=== PATIENT | male | born 1990 | race African-American/Black ===

== ENCOUNTER 2017-06-08 15:51 | Inpatient (IN) | payer OTHER ==
[~2017-06-08] VITALS: Ht 167.6 cm; Wt 71.2 kg
[~2017-06-08 15:51] MED LIST: ATIVAN1 MG PO; CORGARD20 M1; MIDODRINE HCL10 MG; RESTORA CAPSUL1 EACH
[2017-06-08] MEDS ORDERED: PAXIL10 MG PO (15:53)
[2017-06-08 16:40] LABS: ABSOLUTE NEUTROPHILS 6.7 thou/uL (1.4-8.2); BASOPHILS 0.8 % (0.0-2.0); EOSINOPHILS 0.2 % (0.0-3.0); HEMATOCRIT 45.8 % (42.0-52.0); HEMOGLOBIN 15.8 gm/dL (14.0-18.0); LYMPHOCYTES 12.3 % (24.0-44.0); MCH 29.2 pg (26.0-34.0); MCHC 34.5 g/dL (28.0-37.0); MCV 84.5 fL (80.0-100.0); MONOCYTES 11.6 % (1.0-8.0); PLATELET COUNT 235 thou/uL (150-400); POLYS 75.1 % (36.0-66.0); RBC 5.42 mil/uL (4.50-6.00); RDW 13.2 % (10.5-14.5); WBC 8.9 thou/uL (4.0-11.0)
[2017-06-08 16:41] LABS: MANUAL DIFF NO
[2017-06-08 16:57] LABS: ALBUMIN 4.4 g/dL (3.4-5.0); CALCIUM 9.8 mg/dL (8.5-10.1); CREATININE 1.3 mg/dL (0.7-1.3); TOTAL PROTEIN 8.1 g/dL (6.4-8.2)
[2017-06-08 16:59] LABS: POTASSIUM 2.7 mmol/L (3.5-5.1)
[2017-06-08 18:52] VITALS: BP 164/92
[2017-06-08 19:20] VITALS: BP 150/101
[2017-06-08 21:25] LABS: MAGNESIUM 1.5 mg/dL (1.8-2.4); PHOSPHORUS 3.7 mg/dL (2.5-4.9)
[2017-06-08 22:26] LABS: FOLIC ACID 29.4 ng/mL (8.6-58.9)
[2017-06-09 00:32] VITALS: BP 144/105
[2017-06-09 04:19] VITALS: BP 132/93
[2017-06-09 05:46] LABS: HEMATOCRIT 39.8 % (42.0-52.0); MCH 28.9 pg (26.0-34.0); MCHC 33.6 g/dL (28.0-37.0); RBC 4.63 mil/uL (4.50-6.00); RDW 13.2 % (10.5-14.5); WBC 6.2 thou/uL (4.0-11.0)
[2017-06-09 05:49] LABS: HEMOGLOBIN 13.4 gm/dL (14.0-18.0)
[2017-06-09 06:12] LABS: CALCIUM 8.3 mg/dL (8.5-10.1); CREATININE 1.3 mg/dL (0.7-1.3); POTASSIUM 3.4 mmol/L (3.5-5.1)
[2017-06-09 08:00] VITALS: BP 153/94
[2017-06-09 09:29] LABS: URINE BILIRUBIN NEGATIVE (Negative); URINE BLOOD NEGATIVE (Negative); URINE COLOR YELLOW; URINE GLUCOSE-RANDOM* NEGATIVE (Negative); URINE KETONES TRACE (Negative); URINE LEUKOCYTES-REFLEX NEGATIVE (Negative); URINE PROTEIN (DIPSTICK) NEGATIVE (Negative)
[2017-06-09 09:36] LABS: AMP/METHAMP Negative (Negative); BARBITURATES Negative (Negative); BENZODIAZEPINES Negative (Negative); COCAINE Negative (Negative); METHADONE Negative (Negative); OPIATES POSITIVE (Negative); PCP Negative (Negative)
[2017-06-09 16:00] VITALS: BP 153/92
[2017-06-09 20:19] VITALS: BP 120/76
[2017-06-10 04:51] VITALS: BP 122/75
[2017-06-10 06:24] LABS: CALCIUM 8.3 mg/dL (8.5-10.1); CREATININE 1.1 mg/dL (0.7-1.3); MAGNESIUM 2.2 mg/dL (1.8-2.4); PHOSPHORUS 3.4 mg/dL (2.5-4.9); POTASSIUM 3.8 mmol/L (3.5-5.1)
[2017-06-10 08:01] VITALS: BP 136/83
[2017-06-10] MEDS ORDERED: PANTOPRAZOLE SO40 M1 PO (08:41)
[2017-06-10 08:50] VITALS: BP 136/83
== END 2017-06-10 10:30 | disposition home or self-care (01) | DRG 392 ==
LOC: ER 15:51 → EROBS 18:21 → 4S 19:03
PROVIDERS: Emergency Medicine; Internal Medicine
DX: K29.20 Alcoholic gastritis without bleeding (principal); F32.9 Major depressive disorder, single episode, unspecified; F10.10 Alcohol abuse, uncomplicated; Y90.9 Presence of alcohol in blood, level not specified; E87.6 Hypokalemia; R06.6 Hiccough; Z87.891 Personal history of nicotine dependence
CPT/HCPCS: 10100

== ENCOUNTER 2017-06-27 23:26 | Inpatient (IN) | payer OTHER ==
[~2017-06-27] VITALS: Ht 167.6 cm; Wt 75.5 kg
--- NOTE | ~2017-06-27 | HC ---
[facility] [place] [address] CONSULTATION Name: AJAY PALMA JR Room #: 358-P [facility] IN .R.#: [id number] Admission: 06/28/17 Attend Phys: Wu Esparza DO Discharge: 06/29/17 Date of : 86 Report #: [id number] THIS REPORT FOR: //name// CC: FAM unknown Wu Esparza DATE OF SERVICE: 06/28/2017 HISTORY OF PRESENT ILLNESS: This is a 26-year-old male patient who is a very reluctant historian. I do not get a history from him, which is straightforward and the history he gives me does not correlate with the history which is in the records. He is being evaluated for seizures. He indicates that he had 3 seizures altogether. First seizure was some time the last year. The second seizure he thinks was in April. Third seizure for which he was admitted was for which he was seen shaking. He said he bites his tongue, but is not any more specific. He is confused after the episode. He has never been prescribed any medication for the seizures. He does have a history of depression. REVIEW OF SYSTEMS: Indicate that this patient had these 3 seizures. His relevant history is very unclear. He indicates that he does not drink alcohol. However, the records indicate that he drinks alcohol on a regular basis. I asked him whether he smokes marijuana or cigarette and he denies that. I asked him if he uses street drugs and he denies that. He does have a history of depression and that is the only history he will give me. I carried out 14-point review of system and he indicates he feels back to his baseline. He is not complaining of any chest pain, respiratory difficulty, visual disturbances, ENT symptoms, GI symptoms, symptoms, musculoskeletal symptom, constitutional symptom, dermatological, hematological, throat, allergic symptom associated with these symptoms. He does have a history of depression, but apparently that is his baseline is. PAST MEDICAL HISTORY: Positive for a total of 3 seizures. FAMILY HISTORY: Negative for congenital epilepsies. SOCIAL HISTORY: Unreliable as mentioned above. PHYSICAL EXAMINATION: Indicate he is alert. He is responsive. He can follow simple and complex command. His speech, concentration, fund of knowledge and memory is at his baseline. Cranial nerve examination 2-12 was unremarkable. He does not have any meningeal sign. His strength, sensation, reflexes and tone in all 4 extremities is unremarkable. He does not have any carotid bruit. He does not have any meningeal sign. He is a very well-developed individual who does not have any dysmorphic features of eyes, ears and face. His vision and hearing is adequate. His blood pressure is 154/92, respirations 16, pulse is 86, temperature is 98.1. [address] [address] CONSULTATION Name: AJAY PALMA JR Room #: 358-P [facility] IN M.R.#: [id number] Admission: 06/28/17 Attend Phys: Wu Esparza DO Discharge: 06/29/17 Date of : 86 Report #: [id number] LABORATORY DATA: Indicate hematocrit of 40.7. His sodium is normal. His creatinine is 1.5. His last magnesium was normal. IMPRESSION: This patient does have a history of seizure. Reliable Impression is not possible because history is contradictory. He does say that he drinks alcohol, but what he tells me is very little compared to what has been documented in the chart. It is possible that his seizures were alcohol-related. However, it is very difficult for me to tell. With three seizures, I think it is desirable to go on anticonvulsant. He needs to stop drinking alcohol altogether. He does not want to go on anticonvulsant. 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 He is not allowed to drive motor vehicle by [place] for at least 6 months and that is a regular motor vehicle. I discussed those aspects with him. He is aware of it. He also needs to take other seizure precaution, which I discussed with him. RECOMMENDATIONS: I will get an MRI done, get an EEG done and if the patient wants to go on anticonvulsant, we will start the patient on anticonvulsant, but he does need to take seizure precautions as described above, that I discussed with him very clearly. Thank you very much for this referral and if you have any question, please feel free to contact me. <ELECTRONICALLY SIGNED> By: Alf Osullivan MD 07/03/17 1815 [id number] 50 Alf Osullivan MD /nt
--- NOTE | ~2017-06-27 | EEG ---
[facility] [place] [address] ELECTROENCEPHALOGRAM Name: AJAY PALMA Room #: 358-P [facility] IN M.R.#: [id number] Admission: 06/28/17 Attend Phys: Wu Esparza DO Discharge: 06/29/17 Date of : 86 Report #: [id number] THIS REPORT FOR: //name// CC: FAM unknown Wu Esparza DATE OF SERVICE: 06/28/2017 This patient is being evaluated for the possibility of seizure. EEG was done by placing the electrodes by standard 10-20 system of electrode placement. Both referential and sequential montages were used for recording. Background activity in this patient's EEG is about 11 Hz and 40 microvolt. This is a symmetrical activity. The patient goes to sleep that is associated with bilateral slowing, vertex sharp waves and sleep spindle. Muscle artifact is present and so is movement artifact. Photic stimulation was unremarkable. Throughout the record, no active epileptiform activity was noticed. IMPRESSION: This patient's electroencephalogram does not demonstrate any clear-cut epileptiform activity. However, it may be mentioned that electroencephalogram can be normal in a patient with seizure disorder. Thank you very much for this referral. <ELECTRONICALLY SIGNED> By: Alf Osullivan MD 07/03/17 1816 1656 1702 Alf Osullivan MD /nt
[~2017-06-27 23:26] MED LIST changes: +PANTOPRAZOLE SO40 M1 PO; +PAXIL10 MG PO
[2017-06-27 23:27] VITALS: BP 140/112
[2017-06-27 23:48] LABS: HEMATOCRIT 40.7 % (42.0-52.0); HEMOGLOBIN 13.7 gm/dL (14.0-18.0); MCHC 33.7 g/dL (28.0-37.0); MCV 86.2 fL (80.0-100.0); PLATELET COUNT 377 thou/uL (150-400); RBC 4.72 mil/uL (4.50-6.00); RDW 13.7 % (10.5-14.5); WBC 6.5 thou/uL (4.0-11.0)
[2017-06-27 23:55] LABS: ANION GAP 12 mmol/L (7-16); BUN 13 mg/dL (7-18); CALCIUM 9.3 mg/dL (8.5-10.1); CHLORIDE 101 mmol/L (98-107); CO2 26 mmol/L (21-32); CREATININE 1.5 mg/dL (0.7-1.3); GLUCOSE 109 mg/dL (74-106); POTASSIUM 3.9 mmol/L (3.5-5.1); SODIUM 139 mmol/L (136-145)
[2017-06-28 00:01] LABS: ALBUMIN 3.9 g/dL (3.4-5.0); DIRECT BILIRUBIN < 0.1 mg/dL (<0.1-0.3); LIPASE 81 U/L (73-393); SGOT 24 U/L (15-37); SGPT 38 U/L (30-65); TOTAL BILIRUBIN 0.2 mg/dL (<0.1-1.0); TOTAL PROTEIN 7.6 g/dL (6.4-8.2)
[2017-06-28 01:00] LABS: AMP/METHAMP Negative (Negative); BARBITURATES Negative (Negative); BENZODIAZEPINES Negative (Negative); COCAINE Negative (Negative); METHADONE Negative (Negative); OPIATES Negative (Negative); PCP Negative (Negative); URINE BILIRUBIN NEGATIVE (Negative); URINE BLOOD TRACE (Negative); URINE CLARITY CLEAR; URINE COLOR YELLOW; URINE GLUCOSE-RANDOM* NEGATIVE (Negative); URINE KETONES NEGATIVE (Negative); URINE LEUKOCYTES NEGATIVE (Negative); URINE NITRITE NEGATIVE (Negative); URINE PROTEIN (DIPSTICK) NEGATIVE (Negative); URINE UROBILINOGEN 0.2 E.U./dl (0.2-1.0)
[2017-06-28 11:20] VITALS: BP 148/86
[2017-06-28 11:35] VITALS: BP 152/102
[2017-06-28 15:11] VITALS: BP 154/92
[2017-06-28 19:27] VITALS: BP 123/83
[2017-06-28 23:18] VITALS: BP 125/77
[2017-06-29 03:50] VITALS: BP 142/92
[2017-06-29 07:16] VITALS: BP 140/101
[2017-06-29 11:10] VITALS: BP 150/99
[2017-06-29 15:27] VITALS: BP 132/78
[2017-06-29] MEDS ORDERED: ZESTRIL20 MG PO (17:46)
[2017-06-29 18:32] VITALS: BP 132/78
== END 2017-06-29 19:45 | disposition home or self-care (01) | DRG 101 ==
LOC: ER 23:26 → EROBS 06-28 01:23 → 3W 06-28 01:23 → EROBS 06-28 11:21 → 3W 06-28 11:21
PROVIDERS: Emergency Medicine
DX: G40.909 Epilepsy, unspecified, not intractable, without status epilepticus (principal); F10.231 Alcohol dependence with withdrawal delirium; F32.9 Major depressive disorder, single episode, unspecified; R00.0 Tachycardia, unspecified; F17.210 Nicotine dependence, cigarettes, uncomplicated
CPT/HCPCS: 10779

== ENCOUNTER → 2019-12-03 | Outpatient (CLI) | payer OTHER ==
[~2019-12-03] MED LIST changes: +ZESTRIL20 MG PO
--- NOTE | 2019-12-03 08:54 | EKG ---
[facility] [place] [address] ELECTROCARDIOGRAM REPORT Name: AJAY PALMA JR Room #: [facility]#: [id number] Admission: 12/03/19 Attend Phys: [facility] physician Discharge: Date of : 86 Report #: [id number] THIS REPORT FOR: cc: [facility] physician unknown 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: [facility] : 1990 Requested By: MICHAEL unknown Order Number: [id number] MD: Valentín Becker Measurements Intervals [place] Rate: 61 P: -27 MD: 173 QRS: 225 QRSD: 97 T: 4 QT: 394 QTc: 397 Interpretive Statements Sinus rhythm Right axis deviation Nonspecific T wave abnormality Compared to ECG 02/10/2013 10:27:39 Heart rate has slowed Nonspecific change in the ST and T wave segments Electronically Signed On 12-03-2019 8:52:56 CDT by Valentín Becker [email or web address] <ELECTRONICALLY SIGNED> By: Valentín Becker MD, FACC 12/03/1954 5 5 Valentín Becker MD, [facility] /EPI
== END ==
LOC: CV 08:01
DX: I48.91 Unspecified atrial fibrillation (principal)